=== PATIENT | female | born 1970 | race American Indian/Alaskan Native ===

== ENCOUNTER 2017-09-19 08:12 | Outpatient (CLI) | payer OTHER ==
--- NOTE | 2017-09-19 14:30 | Mammography Report ---
BILATERAL DIGITAL SCREENING MAMMOGRAM with CAD and DIGITAL BREAST TOMOSYNTHESIS (DBT) : 09/19/17 CLINICAL: Routine screening. COMPARISON:09/12/11 FINDINGS: The breasts are heterogeneously dense, which may obscure small masses. Left asymmetries on CC rico image 50 and MLO rico image 38 require additional imaging. The right breast is negative. IMPRESSION: Left asymmetries requiring additional workup. BI-RADS CATEGORY: 0 - - Needs Additional Imaging RECOMMENDATION: Recall for COMMENT: Patient follow-up letters are generated by our [employer] application.
== END 2017-09-19 08:13 | disposition home or self-care (01) ==
LOC: SPVWC 08:12
PROVIDERS: ATTEND Obstetrics & Gynecology
DX: Z12.31 Encounter for screening mammogram for malignant neoplasm of breast (principal)
CPT/HCPCS: 77063; 77067